=== PATIENT | male | born 1995 | race Caucasian/White ===

== ENCOUNTER 2024-05-16 13:32 | Outpatient (CLI) | payer OTHER | END 2024-05-16 13:33 | disposition home or self-care (01) | LOC: SCSMRI 13:32 | PROVIDERS: ATTEND Orthopaedic Surgery | DX: M23.92 Unspecified internal derangement of left knee (principal); S83.512A Sprain of anterior cruciate ligament of left knee, initial encounter; S83.412A Sprain of medial collateral ligament of left knee, initial encounter; S83.422A Sprain of lateral collateral ligament of left knee, initial encounter; S80.02XA Contusion of left knee, initial encounter ==

== ENCOUNTER 2024-05-30 06:00 | Inpatient (IN) | payer OTHER ==
[2024-05-29 10:46] VITALS: BMI 26.6
[2024-05-30] MEDS ORDERED: fentaNYL 50 mcg/mL 1 mL Vial ONE ×2 (10:01)
[2024-05-30] MEDS ORDERED: PROPOFOL 200 MG/20 ML VIAL ONE (10:01)
[2024-05-30] MEDS ORDERED: Ropivacaine 0.5% HCl/PF (150 MG/30 ML VIAL) ONE (10:01)
[2024-05-30] MEDS ORDERED: fentaNYL PF 100 MCG/2 ML SYRINGE ONE ×2 (10:01)
[2024-05-30] MEDS ORDERED: CEFAZOLIN 2 GM VIAL ONE ×2 (10:01→17:31)
[2024-05-30] MEDS ORDERED: Vancomycin 1 GM/200 ML (FROZEN) BAG ONE (10:01)
[2024-05-30] MEDS ORDERED: HYDROmorphone 0.5 MG/0.5 ML SYRINGE ONE (10:01)
[2024-05-30] MEDS ORDERED: Midazolam HCl 2 mg/2 ml Vial ONE (10:01)
[2024-05-30] MEDS ORDERED: Ketorolac Tromethamine 30 MG (1 mL) VIAL ONE ×2 (17:30→23:27)
[2024-05-30] MEDS ORDERED: traMADol HCl 50 MG TAB ONE (17:30)
[2024-05-30] MEDS ORDERED: Sodium Chloride 0.9% 100 ML ONE (17:31)
[2024-05-30] MEDS ORDERED: Ondansetron PF 4 MG/2 ML Vial ONE (17:40)
[2024-05-30] MEDS ORDERED: Famotidine 20 MG TAB ONE (20:36)
[2024-05-31] MEDS ORDERED: CEFAZOLIN 2 GM VIAL ONE (02:25)
[2024-05-31] MEDS ORDERED: Sodium Chloride 0.9% 100 ML ONE (02:25)
[2024-05-31] MEDS ORDERED: Ketorolac Tromethamine 30 MG (1 mL) VIAL ONE ×2 (05:23→10:39)
[2024-05-31] MEDS ORDERED: HYDROcodone/Acetaminophen 10/325 mg Tablet ONE (10:39)
== END 2024-05-31 11:00 | disposition home or self-care (01) | DRG 489 ==
LOC: SDC 06:00 → SURG B 12:01
PROVIDERS: ADMIT Orthopaedic Surgery; ATTEND Orthopaedic Surgery
PROC: 0MRP47Z Replacement of Left Knee Bursa and Ligament with Autologous Tissue Substitute, Percutaneous Endoscopic Approach (ICD-10-PCS; principal; 2024-05-30)
PROC: 0MQP0ZZ Repair Left Knee Bursa and Ligament, Open Approach (ICD-10-PCS; 2024-05-30)
PROC: 0LBP4ZZ Excision of Left Lower Leg Tendon, Percutaneous Endoscopic Approach (ICD-10-PCS; 2024-05-30)
DX: S83.512A Sprain of anterior cruciate ligament of left knee, initial encounter (principal); S83.412A Sprain of medial collateral ligament of left knee, initial encounter; X50.9XXA Other and unspecified overexertion or strenuous movements or postures, initial encounter; Y93.67 Activity, basketball
CPT/HCPCS: C1713; C1889; J2250; J2704; J2795; J3010; J3370-JW